=== PATIENT | male | born 1990 | race Two or more races ===

== ENCOUNTER 2017-05-04 12:11 | Outpatient (CLI) ==
[2015-02-13 16:15] VITALS: BMI 35.4
--- NOTE | 2017-05-04 16:42 | MRI ---
EXAM: MRI lumbar spine without IV contrast. DATE: 04 May 2017. HISTORY: Low back pain. TECHNIQUE: Sagittal and axial T1W and T2W sequences of the lumbar spine along with sagittal IR and coronal T2W sequences were obtained using 1.2 Rosanna magnet. No IV contrast. COMPARISON: LS spine series 12/01/2015. FINDINGS: There are five [id number] lumbar vertebra. Minimal (3 degrees) leftward curvature l umbar spine may be positioning artifact. No acute lumbar fracture, subluxation, osseous malignancy, or pars interarticularis defect is demonstrated. Lumbar vertebrae normal in height. Chronic Schmo rl's nodes are identified at L2 and L3. Minor disc space narrowing is observed at L1-2. Remaining intervertebral discs are normal in height. No sacral fracture or stress reaction is evident. Conus medullaris terminates at L1. Visible spinal cord is normal. No retroperitoneal lymphadenopathy, paraspinal mass, or aortic aneurysm is detected. Paraspinal mus culature is symmetric bilaterally. Visible portions of the liver, spleen, adrenal glands, and kidne ys reveal no distinct abnormality. Segmental analysis: T12-L1: Normal. L1-2: Normal. L2-3: Minimal posterior to foraminal disc bulge causes slight bilateral foraminal encroachment. No central canal stenosis. L3-4: Minimal left foraminal to far lateral disc bulge causes minimal left foraminal encroachment. No central canal stenosis. L4-5: Borderline short pedicles, minor concentric disc bulge causes mild /moderate bilateral forami nal narrowing. Each L4 nerve root contacts the disc bulge near the lateral margin of the foramen. No central canal stenosis. L5-S1: Borderline short pedicles, minimal physiologic disc bulge, and minor facet arthropathy cause mild/moderate narrowing at the opening to each foramen. No central canal stenosis. IMPRESSIONS: 1. Lumbar spine multilevel minor disc bulges causing multilevel foraminal narrowing as described. Both L4 nerve roots contact disc bulge near the foramen, and could be sources for pain/radiculopathy . 2. No lumbar spine central canal stenosis. 3. Tiny, old Schmorl's nodes at L2 and L3.
== END 2017-05-04 12:12 | disposition home or self-care (01) ==
LOC: RAD 12:11
PROVIDERS: ATTEND Physician Assistant
DX: M54.5 Low back pain (principal)